=== PATIENT | male | born 1995 | race African-American/Black ===

== ENCOUNTER 2019-04-10 08:47 | Emergency (ER) | payer BC, SELFPAY ==
[2019-04-10 09:06] VITALS: BP 106/58; PULSE 77; RESP 19; TEMP 37; O2SAT 100
--- NOTE | 2019-04-10 09:11 | ED.UPPEXIN ---
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 EYES: Denies visual changes, redness, discharge. ENT: Denies rhinorrhea, congestion, sore throat, otalgia. CARDIOVASCULAR: Denies chest pain, palpitations, edema. RESPIRATORY: Denies dyspnea, wheezing, cough GASTROINTESTINAL: Denies abdominal pain, nausea, vomiting, diarrhea. GENITOURINARY: Denies dysuria, hematuria, abnormal discharge SKIN: Denies rash or itching. NEUROLOGIC: Denies numbness, or focal weakness. PSYCHIATRIC: Denies anxiety or depression. Extremities: L Shoulder pain PMFSH Family History Family History Other Diabetes mellitus Social History Social History Smoking status: Current some day smoker Tobacco type: cigars Alcohol intake: never Comments At time of signature, I agree with nursing past medical, surgical, social and family history. There is no relevant family history pertinent to the presenting complaint. Exam Narrative: Exam Narrative: GENERAL: This is a well-nourished, well-developed patient, in no apparent distress. HEAD: normocephalic, atraumatic. EYES: Sclera clear/white. Vision is grossly intact. EARS: External ears normal, Hearing grossly intact. NOSE: External nose normal with no obvious nasal discharge, nares without redness, no rhinorrhea. THROAT: Mucous membranes moist, NECK: Neck supple, non-tender -no left-sided neck pain with palpation CARDIOVASCULAR: Regular rate and rhythm without murmurs, gallops, or rubs. RESPIRATORY: Clear to auscultation. Breath sounds equal bilaterally. No wheezes, rales, or rhonchi. GASTROINTESTINAL: Abdomen soft, non-tender, SKIN: warm, intact with no suspicious lesions or rash, good texture and turgor. NEURO: awake, alert, and oriented to person, place and time. There were no obvious focal neurologic abnormalities. Steady gait EXTREMITIES: Normal range of motion. No edema. Left arm has full range of motion but pain is across deltoid with movement BACK: Nontender without deformity or crepitance. No flank tenderness. Course Course Emergency Course: Started on muscle relaxant Vital Signs Vital signs: Vital Signs Temperature 98.6 F 04/10/19 09:06 Pulse Rate 77 04/10/19 09:06 Respiratory Rate 19 04/10/19 09:06 Blood Pressure 106/58 L 04/10/19 09:06 Pulse Oximetry 100 04/10/19 09:06 Temperature 98.6 F 04/10/19 09:06 Pulse Rate 77 04/10/19 09:06 Respiratory Rate 19 04/10/19 09:06 Blood Pressure 106/58 L 04/10/19 09:06 Pulse Oximetry 100 04/10/19 09:06 MDM - Extremity Injury (Upper) Differential Diagnosis Differential diagnosis: Likely sprain and strain of wrist, dislocation of shoulder and other (Left shoulder strain) Discharge Plan Discharge Clinical Impression: Left shoulder strain Qualifiers: Encounter type: initial encounter Qualified Code(s): S46.912A - Strain of unspecified muscle, fascia and tendon at shoulder and upper arm level, left arm, initial encounter Patient Disposition: Home, Self-Care Condition: Stable Instructions: Shoulder Sprain (ED) Prescriptions: New cyclobenzaprine 10 mg tablet 10 mg PO TID PRN (Reason: muscle spasm) Qty: 30 RF: 0 Follow-up/Referrals: UNKNOWN,DOCTOR
== END 2019-04-10 09:31 | disposition home or self-care (01) ==
PROVIDERS: Emergency Provider Nurse Practitioner
DX: S46.912A Strain of unspecified muscle, fascia and tendon at shoulder and upper arm level, left arm, initial encounter (principal); X58.XXXA Exposure to other specified factors, initial encounter; F17.290 Nicotine dependence, other tobacco product, uncomplicated
CPT/HCPCS: 99213; G0463